=== PATIENT | female | born 1970 ===

== ENCOUNTER 2016-06-04 12:09 | Emergency (ER) | payer OTHER, MEDICARE ==
[~2016-06-04] VITALS: Ht 170.2 cm; Wt 85.5 kg
[2016-06-04 12:16] VITALS: BP 107/61; PULSE 91; RESP 17; O2SAT 98
[2016-06-04 12:37] VITALS: BP 111/70; PULSE 90; RESP 17; O2SAT 100
[2016-06-04] MEDS ORDERED: ESOM40CA41 PO (12:37)
[2016-06-04] MEDS ORDERED: LORA1TAB PO (12:37)
[2016-06-04] MEDS ORDERED: DOTERRA (12:37)
[2016-06-04] MEDS ORDERED: DIPH25CA6 PO (12:37)
[2016-06-04] MEDS ORDERED: FUR20 PO (12:37)
[2016-06-04] MEDS ORDERED: [UNRECOGNIZED DRUG - OTHER] (12:37)
[2016-06-04] MEDS ORDERED: LIOT5TAB6 PO (12:37)
[2016-06-04] MEDS ORDERED: OXYC1TAB24 PO (12:37)
[2016-06-04] MEDS ORDERED: HYOS0.1217 PO (12:37)
[2016-06-04] MEDS ORDERED: ZLP10T PO (12:37)
[2016-06-04] MEDS ORDERED: ONDA4TAB9 PO (12:37)
[2016-06-04] MEDS ORDERED: KLO1T PO (12:37)
[2016-06-04] MEDS ORDERED: IPRA3AMP IH (12:37)
[2016-06-04] MEDS ORDERED: LEVO100T6 PO (12:37)
--- NOTE | 2016-06-04 12:37 | ED.REPORT ---
HPI-Allergic Reaction Date of Service Jun 04, 2016 ED Provider: Adrien Jacobs DO Pt is a 45 year old female with a hx of fibromyalgia and HTN presenting to the ED via EMS complaining of an allergic reaction. Associated symptoms include chest tightness, swelling in her arms, scalp itching, nausea, vomiting, SOB, dizziness, headache. She reports that she was spraying [employer], which is bee repellent, which she usually uses every year when her symptoms began. Pt took Benadryl with some relief. Nursing Notes Stated Complaint: CHEMICAL EXPOSURE Chief Complaint: Allergic Reaction Nursing Notes Reviewed: Yes Allergies: Coded Allergies: acyclovir (Verified Allergy, Unknown, 02/01/16) gabapentin (Verified Allergy, Unknown, 02/01/16) latex (Verified Allergy, Unknown, 02/01/16) morphine (Verified Allergy, Unknown, 02/01/16) Uncoded Allergies: PENICILLIN (Allergy, Unknown, 02/01/16) SULFA (Allergy, Unknown, 02/01/16) Scheduled Cetirizine HCl (Zyrtec) 10 Mg Capsule 10 MG PO HS Esomeprazole Magnesium (Nexium) 40 Mg Capsule.dr 40 MG PO HS Furosemide (Furosemide) 20 Mg Tab 20 MG PO DAILY Ipratropium/Albuterol Sulfate (Iprat-Albut 0.5-3(2.5) mg/3 mL Inhalant Soln) 3 Ml Ampul.neb 3 ML IH Q6 Levothyroxine (Levothyroxine) 100 Mcg Tablet 100 MCG PO DAILY Liothyronine Sodium (Cytomel) 5 Mcg Tablet 5 MCG PO DIRECTED Prednisone (PredniSONE) 50 Mg Tablet 50 MG PO DAILY Scheduled PRN Clonazepam (Clonazepam) 1 Mg Tablet 1 MG PO BID PRN PRN For Anxiety Lorazepam (Lorazepam) 1 Mg Tablet 1.5 MG PO HS PRN PRN For Insomnia Ondansetron ODT (Zofran ODT) 4 Mg Tablet 4-8 MG PO Q4H PRN PRN For Nausea Zolpidem (Ambien) 10 Mg Tablet 10 MG PO HS PRN PRN For Insomnia diphenhydrAMINE HCl (Benadryl) 25 Mg Capsule 50 MG PO HS PRN PRN oxyCODONE-Acetaminophen 5-325 mg (oxyCODONE-Acetaminophen 5-325 mg) 1 Each Tablet 1 TAB PO Q6H PRN PRN For Pain Miscellaneous Medications ([doterra softgel]) ([vibell dot]) 0.075 MG Hyoscyamine ODT (Hyoscyamine ODT) 0.125 Mg Tab.rapdis 0.125 MG PO General Time Seen by MD: 12:32 Chief Complaint Allergic reaction Hx Obtained From: Patient Arrived By: Ambulance Onset Occurred: Just prior to arrival Context of Onset: Exposure, chemical Symptom Duration: Since onset Progression Since Onset: Constant Severity: Current: No pain currently Severity: Maximum: No pain Recent Healthcare: No recent doctor visit, No recent hospitalization Similar Sx Previous: No Past Medical History Past Medical History Fibromyalgia Thyroid cancer Hypertension DVT not anticoagulated SVT Cervical Stenosis Osteoporosis Glomerular nephritis Cervical stenosis Past Surgical History Cardiac ablations x3 2001, 2004, 2008 Thyroidectomy Smoking History Unknown if Ever Smoker Social History Other Social History: Good social support, Ambulatory Status Independent Review of Systems Respiratory: Reports: Shortness of breath GI: Reports: Nausea, Vomiting Skin: Reports Itching Neurologic: Reports: Dizziness, Headache Complete sys rev & neg: except as marked. Cardiovascular: Reports: Chest pain (Tightness) Musculoskeletal: Reports: Extremity swelling Physical Exam Initial Vital Signs Vital Signs (First) Date Time Temp Pulse Resp B/P Pulse Ox O2 Delivery O2 Flow Rate FiO2 06/04/16 12:16 37.0 91 17 107/61 98 Nasal Cannula 2 Initial VS: Reviewed Head / Eyes: Atraumatic, Normocephalic, PERRL ENT: Mucous membranes moist, Conjunctiva normal, No scleral icterus Neck: Supple, Non-tender, Full range of motion Abdomen / GI: No distention Extremities: Vascular intact, Neuro intact Neurologic: Alert, Oriented, Nonfocal Psychiatric: Mood/affect normal, Behavior normal, Normal thought content General/Constitutional: Awake, Alert, Well appearing Respiratory / Chest: Atraumatic, Breath sounds NL, Breath sounds = bilat, No respiratory distress, No wheezing, No stridor Skin: Warm, Dry Rash / Lesion Notes: 1 2cm urticarial lesion dorsal right forearm. Rash / Lesion Location: Positive: Forearm R Rash / Lesion Pattern: Positive: Urticarial Re-Eval/Medical Decision Re-Evaluation/Progress : Time of Eval: 13:45 Patient Status: Condition improved Re-Evaluation/Progress Note: Pt hives are improved, breathing stable pt feels good to go home. Pt has a viable epi pen which she can use at home if needed. Counseled Regarding: Diagnosis, Lab results, Need for follow-up, When/why to return to ED Discharge & Departure Primary Impression: Allergic reaction Encounter type: initial encounter Qualified Code: T78.40XA - Allergy, unspecified, initial encounter Disposition: Home Discharge Condition All VS Reviewed: Yes Condition: Improved Patient Instructions: Allergies (ED) Additional Instructions: It seems that you have had an allergic reaction today to the chemicals that your sprain. You should take prednisone daily for the next 2 days. Also use Zyrtec daily. Use Benadryl for any itching or recurrent hives. Return to ER if you develop throat swelling, difficulty breathing, or other signs of severe allergic reaction. Referrals: OTHER,PHYSICIAN (PCP) Scribe Attestation Portions of this note were transcribed by Carolyn Ramsey. I, Dr. Jacobs personally performed the history, physical exam and medical decision-making; I reviewed and confirmed the accuracy of the information in the transcribed note. Signed by: Moody Blood, 06/04/2016 at 1404. Adrien Jacobs DO Jun 04, 2016 12:37 CAROLYN RAMSEY Jun 04, 2016 12:50
[2016-06-04] MEDS ORDERED: Famotidine Inj 20 MG in IV Premix 1 EACH IV ONE (12:55)
[2016-06-04] MEDS ORDERED: MethylprednisoLONE Sodium Succinate 62.5 mg/mL 2 mL Inj IVPUSH ONE (12:55)
[2016-06-04] MEDS ORDERED: CETI10CA PO (13:59)
[2016-06-04] MEDS ORDERED: PRED50TA PO (13:59)
[2016-06-04 14:07] VITALS: BP 114/73; PULSE 90; RESP 24; O2SAT 97
[2016-06-04 14:19] VITALS: BP 114/73; PULSE 90; RESP 24; O2SAT 97
== END 2016-06-04 14:19 | disposition home or self-care (01) ==
LOC: SED 12:09 → EDBD 12:09 → EDUNIT# 12:09 → SED 14:19
DX: T60.2X1A Toxic effect of other insecticides, accidental (unintentional), initial encounter (principal); X58.XXXA Exposure to other specified factors, initial encounter; Y92.9 Unspecified place or not applicable; Y93.9 Activity, unspecified; Y99.9 Unspecified external cause status; R07.89 Other chest pain; R11.2 Nausea with vomiting, unspecified; R06.02 Shortness of breath; R42 Dizziness and giddiness; R51 Headache; R22.31 Localized swelling, mass and lump, right upper limb; L29.9 Pruritus, unspecified; I10 Essential (primary) hypertension; M79.7 Fibromyalgia; Z86.718 Personal history of other venous thrombosis and embolism; Z88.3 Allergy status to other anti-infective agents; Z88.8 Allergy status to other drugs, medicaments and biological substances; Z88.5 Allergy status to narcotic agent; Z88.0 Allergy status to penicillin; Z88.2 Allergy status to sulfonamides
CPT/HCPCS: 96374; 96375; 99284; J2930; J3490

== ENCOUNTER 2016-09-27 12:18 | Emergency (ER) | payer OTHER, MEDICARE ==
[~2016-09-27] VITALS: Ht 167.6 cm; Wt 81.8 kg
[~2016-09-27 12:18] MED LIST: CETI10CA PO; DIPH25CA6 PO; DOTERRA; ESOM40CA41 PO; FUR20 PO; HYOS-19 PO; IPRA3AMP IH; KLO1T PO; LEVO100T6 PO; LIOT5TAB6 PO; LORA1TAB PO; ONDA4TAB9 PO; OXYC1TAB24 PO; PRED50TA PO; ZLP10T PO; [UNRECOGNIZED DRUG - OTHER]
[2016-09-27 12:27] VITALS: BP 141/87; PULSE 97; RESP 16; O2SAT 99
--- NOTE | 2016-09-27 13:31 | DRSVH ---
PROCEDURE: X-RAY LEFT RIBS, TWO VIEWS ([id number]) INDICATIONS: FALL TECHNIQUE: 4 views of the left ribs were acquired. COMPARISON: [facility], CR, XR CHEST 1VW (PORTABLE), 02/01/2016, 19:21. FINDINGS: Surgical changes and devices: None. Bones and chest wall: No fractures or dislocations. No suspicious bony lesions. Overlying soft tis sues appear unremarkable. Postoperative changes of the left lower neck. The present Lungs and pleura: The visualized lung appears clear. There may be emphysematous changes within the lung apices. No pleural effusions or pneumothorax are visible. IMPRESSION: No displaced left rib fractures are evident. Dictated by: Betito Varela M.D. on 09/27/2016 at 12:25 Approved by: Betito Varela M.D. on 09/27/2016 at 12:30
--- NOTE | 2016-09-27 15:21 | ED.REPORT ---
HPI-General Illness Date of Service Sep 27, 2016 ED Provider: Joey Wood MD Pt is a 46 y/o female presenting to the ED due to mechanical ground level fall which occurred last night. The patient was watering her lawn last night and slipped on the slippery top stair of her deck and fell down 3 stairs and hit her left ribs. She is now experiencing left-sided rib pain, constant, moderate in severity. She c/o associated nausea and vomiting secondary to pain. She denies any head injury or change in LOC, numbness or weakness, shortness of breath, abdominal pain. She has been taking 5 mg Percocet TID which is not relieving the pain. She has fractured a rib on the right side previously and her pain now is somewhat similar in character but much less severe. She vomited during her last rib fracture as well. No other complaints at this time, including no neck or back pain. Nursing Notes Stated Complaint: POSS CRACKED RIBS/FELL 3FT Chief Complaint: Multiple Trauma/Fall Nursing Notes Reviewed: Yes Allergies: Coded Allergies: Bumble Bee (Verified Allergy, Severe, Anaphylaxis, 09/27/16) peanut (Verified Allergy, Severe, Anaphylaxis, 09/27/16) shellfish derived (Verified Allergy, Severe, Anaphylaxis, 09/27/16) Penicillins (Verified Allergy, Intermediate, Anaphylaxis, 09/27/16) Sulfa (Sulfonamide Antibiotics) (Verified Allergy, Mild, HIVES, 09/27/16) acyclovir (Verified Allergy, Unknown, 09/27/16) gabapentin (Verified Allergy, Unknown, 09/27/16) latex (Verified Allergy, Unknown, 09/27/16) morphine (Verified Allergy, Unknown, 09/27/16) Scheduled Cetirizine HCl (Zyrtec) 10 Mg Capsule 10 MG PO HS Esomeprazole Magnesium (Nexium) 40 Mg Capsule.dr 40 MG PO HS Furosemide (Furosemide) 20 Mg Tab 20 MG PO DAILY Ipratropium/Albuterol Sulfate (Iprat-Albut 0.5-3(2.5) mg/3 mL Inhalant Soln) 3 Ml Ampul.neb 3 ML IH Q6 Levothyroxine (Levothyroxine) 100 Mcg Tablet 100 MCG PO DAILY Liothyronine Sodium (Cytomel) 5 Mcg Tablet 5 MCG PO DIRECTED Prednisone (PredniSONE) 50 Mg Tablet 50 MG PO DAILY Scheduled PRN Clonazepam (Clonazepam) 1 Mg Tablet 1 MG PO BID PRN PRN For Anxiety Cyclobenzaprine (Cyclobenzaprine) 10 Mg Tablet 10 MG PO TID PRN PRN Spasm Lorazepam (Lorazepam) 1 Mg Tablet 1.5 MG PO HS PRN PRN For Insomnia Ondansetron ODT (Zofran ODT) 4 Mg Tablet 4-8 MG PO Q4H PRN PRN For Nausea Zolpidem (Ambien) 10 Mg Tablet 10 MG PO HS PRN PRN For Insomnia diphenhydrAMINE HCl (Benadryl) 25 Mg Capsule 50 MG PO HS PRN PRN oxyCODONE-Acetaminophen 5-325 mg (oxyCODONE-Acetaminophen 5-325 mg) 1 Each Tablet 1 TAB PO Q6H PRN PRN For Pain Miscellaneous Medications ([doterra softgel]) ([vibell dot]) 0.075 MG Hyoscyamine ODT (Hyoscyamine ODT) 0.125 Mg Tab.rapdis 0.125 MG PO General Time Seen by MD: 14:27 Chief Complaint Chest pain Hx Obtained From: Patient Arrived By: Walk-in Sudden in Onset?: Yes Onset Occurred: 9 - 12 hours ago Symptom Duration: Since onset Location: : Chest Quality: Painful, Sharp Severity: Current: Moderate Severity: Maximum: Moderate Similar Sx Previous: Yes Past Medical History Past Medical History Fibromyalgia Thyroid cancer Hypertension DVT not anticoagulated SVT Cervical Stenosis Osteoporosis Glomerular nephritis Cervical stenosis Past Surgical History Cardiac ablations x3 2001, 2005, 2009 Thyroidectomy Smoking History Unknown if Ever Smoker Social History Other Social History: Good social support, Ambulatory Status Independent Review of Systems Full Review of Systems Constitutional: Denies: Chills, Fever Respiratory: Reports: Pleuritic pain, Denies: Non-productive cough, Shortness of breath Cardiovascular: Reports: Chest pain Neurologic: Denies: Change LOC, Headache Complete sys rev & neg: except as marked. Physical Exam Nursing note and vitals reviewed. Constitutional: Well-developed, well-nourished. Not diaphoretic. Head: Normocephalic and atraumatic. Mouth/Throat: Oropharynx is clear and moist. No oropharyngeal exudate. Eyes: EOM are normal. Neck: Supple, no tracheal deviation. Cardiovascular: Normal rate, regular rhythm. Equal and intact distal pulses throughout. Pulmonary/Chest: Effort normal and breath sounds normal. No respiratory distress. No retractions. Tenderness to palpation of left rib cage without crepitus. No ecchymosis. No gross deformity. Abdominal: Soft. No distension. There is no tenderness, rebound, or guarding. Musculoskeletal: Range of motion grossly intact, moving all extremities. No edema or tenderness appreciated. No spinal tenderness. Neurological: AOx3. Grossly nonfocal exam. Strength and sensation intact and equal to bilateral upper and lower extremities. Skin: Warm and dry, no rashes or pallor appreciated. Psychiatric: Appropriate mood and affect. Behavior appears normal. Vital Signs Vital Signs Date Time Temp Pulse Resp B/P Pulse Ox O2 Delivery O2 Flow Rate FiO2 09/27/16 15:49 36.7 64 20 116/81 100 Room Air 09/27/16 12:27 36.7 97 16 141/87 99 Room Air Initial VS: Reviewed, Vital signs normal Interpretation & Diagnostics X-Ray Interpretation Xray Interpretation: IMPRESSION: No displaced left rib fractures are evident. Dictated by: Betito Varela M.D. on 09/27/2016 at 12:25 Approved by: Betito Varela M.D. on 09/27/2016 at 12:30 Study Performed: Ribs Interpretation / Wet Read by: Interpret - Radiologist Re-Eval/Medical Decision Med Decision/Clinical Course 46-year-old female presenting to the ED for evaluation of left-sided rib pain after a fall from standing yesterday. Chest x-ray with no evidence of pneumothorax or rib fracture. She is in no respiratory distress, well- appearing. She did request Flexeril for muscle spasm; has been taking 1 at night previously. I stated that I would give her a short course of Flexeril, though also would like her to partake in incentive spirometry to ensure no developing pneumonia. She should also follow up with her primary care physician in the next several days. She states that she has narcotics for her pain already and does not need any more at this time. Given a shot of Toradol here in the ED with some improvement. Plan discharge with careful return precautions, PCP follow-up as above. Patient agreeable to the plan as stated, no further questions. Time of Eval: 15:23 Re-Evaluation/Progress Note: Pt rechecked. Informed pt of plan for discharge. Pt understands and agrees with plan for discharge. F/U instructions and RTER warnings given. All questions addressed. Counseled Regarding: Diagnosis, Need for follow-up, When/why to return to ED Discharge & Departure Primary Impression: Rib pain on left side Additional Impression: Fall Encounter type: initial encounter Qualified Code: W19.XXXA - Unspecified fall, initial encounter Disposition: Home Discharge Condition All VS Reviewed: Yes Condition: Improved Patient Instructions: Fall Prevention (ED), Rib Contusion (ED) Additional Instructions: There was no sign of obvious rib fracture on x-ray. There may be a small or occult fracture that cannot be seen on x-ray. These tiny fractures are usually not dangerous unless they worsen. Please follow up with your regular doctor in 1-2 days as scheduled. Return to the ED if you develop any worsening pain, difficulty breathing, cough , fever, vomiting, or if there's anything else of concern to you. Referrals: [facility] Scribe Attestation Portions of this note were transcribed by Enrique Singh. I, Dr. Wood personally performed the history, physical exam and medical decision-making; I reviewed and confirmed the accuracy of the information in the transcribed note. Joey Wood MD Sep 27, 2016 15:21 ENRIQUE SINGH Sep 27, 2016 15:24
[2016-09-27] MEDS ORDERED: CYCL10TA9 PO (15:24)
[2016-09-27 15:49] VITALS: BP 116/81; PULSE 64; RESP 20; O2SAT 100
== END 2016-09-27 15:49 | disposition home or self-care (01) ==
LOC: SED 12:18
DX: R07.81 Pleurodynia (principal); W10.9XXA Fall (on) (from) unspecified stairs and steps, initial encounter; Y93.89 Activity, other specified; Y92.89 Other specified places as the place of occurrence of the external cause; Y99.8 Other external cause status; R11.2 Nausea with vomiting, unspecified; I10 Essential (primary) hypertension; M79.7 Fibromyalgia; Z87.828 Personal history of other (healed) physical injury and trauma; Z88.0 Allergy status to penicillin; Z88.2 Allergy status to sulfonamides; Z88.5 Allergy status to narcotic agent; Z88.8 Allergy status to other drugs, medicaments and biological substances; Z91.010 Allergy to peanuts; Z91.013 Allergy to seafood; Z91.030 Bee allergy status; Z91.040 Latex allergy status
CPT/HCPCS: 71100; 96372; 99284; J1885